=== PATIENT | female | born 1960 | race African-American/Black ===

== ENCOUNTER 2017-01-19 23:44 | Observation (INO) | payer OTHER ==
[~2017-01-19] VITALS: Ht 154.9 cm; Wt 68.0 kg
[~2017-01-19 23:44] MED LIST: COZAAR50 M1 PO; ERYTHROMYCIN; FERROUS SULFAT325 M3 PO; LANTUS100 U/ML SC; METFORMIN HCL1000 M1 PO; NOVOLIN 70100 UNIT/1 SC; NOVOLIN 701000 UNITS SC; PRAVASTATIN SOD40 M2 PO; SYNTHROID0.025 MG PO; VITAMIN D-32000 UNI1 PO
--- NOTE | 2017-01-19 23:52 | NUR ---
TRIAGE: PATIENT TO ER FROM HOME REPORTING CP X FEW DAYS, INC TONIGHT. ALSO REPORTS TONIGHT JUST BOX TOE BUFFER PAIN RADIATION INTO L ARM AND L LEG, TAKING OTC PRILOSEC AND ASA W/O RELIEF. CURRENT PAIN 04/21. EKG OBTAINED AND SHOWN TO MD BROOKS. PATIENT REPORTING +NAUSEA AND INTERMITTENT SOB AT REST. NO ACUTE RESP DISTRESS NOTED, SPEECH CLEAR.
--- NOTE | 2017-01-20 00:01 | NUR ---
BLOOD DRAWN AND SENT TO LAB. [facility],[place]
[2017-01-20 00:36] LABS: ABSOLUTE BASOPHIL COUNT 0 /CUMM (0.0-0.2); ABSOLUTE EOSINOPHIL COUNT 0.1 /CUMM (0.0-0.7); ABSOLUTE GRANULOCYTE CT 1.9 /CUMM (1.4-6.5); ABSOLUTE LYMPH COUNT 3.1 /CUMM (1.2-3.4); ABSOLUTE MONOCYTE COUNT 0.6 /CUMM (0.10-0.60); BASOPHIL % 0.5 % (0.0-2.0); EOSINOPHIL % 1.1 % (0-5); GRANULOCYTE % 33.5 % (42.2-75.2); HEMATOCRIT 36.2 % (37-47); MEAN CORPUSCULAR HGB 27.2 PG (27.0-31.0); MEAN CORPUSCULAR VOLUME 85.1 FL (81.0-99.0); MEAN PLATELET VOLUME 10.4 FL (7.4-10.4); PLATELET COUNT 182 /CUMM (130-400); RBC DISTRIBUTION WIDTH 14.6 % (11.5-14.5); RED BLOOD CELL CT 4.26 /CUMM (4.20-5.40); WHITE BLOOD CELL COUNT 5.7 /CUMM (4.8-10.8)
--- NOTE | 2017-01-20 02:15 | ED CARDIAC/CP/PALPITATIONS ---
History of Present Illness General Chief Complaint: Chest Pain Stated Complaint: CHEST PAIN Source: patient Exam Limitations: no limitations Allergies Coded Allergies: nut - unspecified (Severe, THROAT CLOSURE 01/20/17) Sulfa (Sulfonamide Antibiotics) (Intermediate, DISORIENTED 01/20/17) lisinopril (Intermediate, COUGH 01/20/17) Triage Note: TRIAGE: PATIENT TO ER FROM HOME REPORTING CP X FEW DAYS, INC TONIGHT. ALSO REPORTS TONIGHT JUST NEEDLE BAR MOLDER PAIN RADIATION INTO L ARM AND L LEG, TAKING OTC PRILOSEC AND ASA W/O RELIEF. CURRENT PAIN 04/21. EKG OBTAINED AND SHOWN TO MD BROOKS. PATIENT REPORTING +NAUSEA AND INTERMITTENT SOB AT REST. NO ACUTE RESP DISTRESS NOTED, SPEECH CLEAR. Triage Nurses Notes Reviewed? yes Onset: Abrupt Duration: day(s): (3), waxing and waning Timing: multiple episodes today Location: substernal Activities at Onset: rest Aspirin Today: 7-8 BABY ASPIRIN Associated Symptoms: shortness of breath, PAIN RADIATING TO LEFT ARM HPI: 56 year old female with history of HTN, DM presents to the ER for chief complaint of substernal chest pain for the past 3 days on/off. She has taken 7- 8 baby aspirin today. Lately her blood glucose has been out of control. Today pain is associated with radiation down the left arm. Patient started to have shortness of breath prior to arrival. Patient sees Dr. Nails but has not seen him in 1 year. (CECILIA MARTINEZ,[facility]) Vital Signs & Intake/Output Vital Signs & Intake/Output Vital Signs Date Time Temp Pulse Resp B/P B/P Pulse O2 O2 Flow FiO2 Mean Ox Delivery Rate 01/20 1908 98.5 67 18 138/86 99 01/20 1652 62 18 140/87 99 Room Air 01/20 1619 96.5 74 18 168/90 99 Room Air 01/20 1342 95.5 76 18 138/71 99 Room Air 01/20 1159 97.6 77 18 162/82 01/20 1057 97.6 77 18 162/82 98 01/20 0852 96.5 64 18 139/75 98 01/20 0809 99 Room Air 01/20 0606 97.2 73 18 140/77 97 Room Air 01/19 2352 97.9 89 18 166/81 100 Room Air ED Intake and Output 01/20 0000 01/19 1200 Intake Total Output Total Balance Patient 150 lb Weight Weight Reported by Patient Measurement Method Reconcile Medications Cholecalciferol (Vitamin D3) (Vitamin D-3) 2,000 UNIT CAPSULE 1 CAP PO DAILY bone health (Reported) Ferrous Sulfate 325 MG (65 MG IRON) TABLET 1 TAB PO DAILY anemia (Reported) Insulin Glargine, Recombinan (Lantus) 100 U/ML APRIL 14 UNITS SC QPM DM TAKE 7 UNITS ON THE NIGHT OF 04/11 FROM 04/12 TAKE 14 UNITS OF LANTUS AT BEDTIME ONLY Levothyroxine (Synthroid) 0.025 MG TAB 0.1 MG PO DAILY THROID (Reported) Losartan (Cozaar) 50 MG TAB 1 TAB PO DAILY CARDIAC (Reported) METFORMIN HCL (Metformin) 1,000 MG TAB 1 TAB PO BID DM (Reported) Novolin 70/30 (Novolin 70-30 100 Unit/Ml Vial) 100 UNIT/1 ML VIAL DIABETES ( Reported) SLIDING SCALE. Pravastatin Sodium (Pravastatin) 40 MG TAB 1 TAB PO QPM CHOLESTEROL (Reported ) (DEEPA MARTINEZ,TATY) Past History Travel History Traveled to [place] past 21 day No Medical History Any Pertinent Medical History? see below for history Neurological: NONE EENT: NONE Cardiovascular: hypertension, CHEST PAIN Respiratory: NONE Gastrointestinal: GERD Hepatic: NONE Renal: NONE Musculoskeletal: NONE Psychiatric: NONE Endocrine: diabetes, hyperthyroidism Blood Disorders: NONE Cancer(s): NONE HEAD COOK/Reproductive: NONE History of MRSA: No History of VRE: No History of CDIFF: No Surgical History Surgical History: , thyroidectomy for a for a benign calcified nodule nodule Psychosocial History What is your primary language [place] Tobacco Use: Never used ETOH Use: denies use Illicit Drug Use: denies illicit drug use Family History Hx Contributory? No (CECILIA MARTINEZ,DANIELLE) Review of Systems Review of Systems Constitutional: Denies: chills, fever. EENTM: Reports: no symptoms. Respiratory: Reports: short of breath. Denies: see HPI, sputum production. Cardiovascular: Reports: chest pain. Denies: palpitations. GI: Reports: no symptoms. Genitourinary: Reports: no symptoms. Musculoskeletal: Reports: no symptoms. Skin: Reports: no symptoms. Neurological/Psychological: Reports: no symptoms. Hematologic/Endocrine: Denies: bruising, bleeding, polyuria, polydipsia. Immunologic/Allergic: Denies: splenectomy. All Other Systems: Reviewed and Negative (DANIELLE BROOKS MD) Physical Exam Physical Exam General Appearance: well developed/nourished, alert, awake, anxious, mild distress Head: atraumatic, normal appearance Eyes: Bilateral: normal appearance, PERRL. Ears, Nose, Throat: normal pharynx, normal ENT inspection, hearing grossly normal Neck: normal inspection, supple, full range of motion Respiratory: normal breath sounds, chest non-tender, no respiratory distress Cardiovascular: regular rate/rhythm Peripheral Pulses: 2+ radial (R), 2+ radial (L) Gastrointestinal: normal bowel sounds, soft, non-tender Extremities: normal inspection, normal capillary refill, normal range of motion, no edema Neurologic/Psych: no motor/sensory deficits, awake, alert, oriented x 3 Skin: intact, normal color, warm/dry Core Measures ACS in differential dx? Yes ASA ordered for poss ACS? TAKEN NEEDLE BAR MOLDER Severe Sepsis Present: No Septic Shock Present: No (DANIELLE BROOKS MD) Progress Differential Diagnosis: AMI, aortic dissection, costochondritis, musculoskeletal pain, myocarditis, pancreatitis, pericarditis, pneumonia, pneumothorax, unstable angina Initial ED EKG: NSR, LAD, LPFV Repeat EKG: unchanged Hand-Off Endorsed To: TATY ARENAS MD Endorsed Time: 723 Pending: consult (DR CHAIREZ) (DANIELLE BROOKS MD) Plan of Care: Orders Procedure Date/time Status Nothing by Mouth 01/21 B Active CBC WITHOUT DIFFERENTIAL 01/21 0600 Active BASIC ELECTROLYTES PLUS BUN&CR 01/21 0600 Active Consistent Carbohydrate 2 01/20 L Complete DIPYRIDAMOLE STRESS W/NUC IMAG 01/20 1443 Active Vital Signs 01/20 1307 Active Teach/Educate 01/20 1307 Active Pain Treatment and Response 01/20 1307 Active Nutritional Intake, Monitor 01/20 1307 Active Isolation 01/20 1307 Active Intake & Output 01/20 1307 Active Patient Care Conference 01/20 1307 Active Activity/Ambulation 01/20 1307 Active Add-on Test (ER Only) 01/20 1305 Active Pathway - chart 01/20 1037 Active Patient Data 01/20 1037 Active Patient Data 01/20 0948 Active OXYGEN SETUP (GEN) 01/20 0938 Active Saline Lock 01/[address] in observation 01/20 0938 Active Vital Signs 01/20 0938 Complete Activity/Ambulation 01/20 0938 Complete Code Status 01/20 0938 Active EKG 01/20 0926 Active TROPONIN LEVEL 01/20 0925 Complete TROPONIN LEVEL 01/20 0400 Complete EKG 01/20 0400 Active Telemetry/Bonderite Operator 01/20 0308 Active GLYCOSYLATED HGB 01/20 0000 Complete House Staff 01/20 UNK Active VTE Mechanical Prophylaxis 01/20 UNK Active Telemetry/Bonderite Operator 01/20 UNK Active FingerStick- Glucose 01/20 UNK Active TROPONIN LEVEL 01/19 2359 Complete COMPREHENSIVE METABOLIC PANEL 01/19 2359 Complete CBC WITHOUT DIFFERENTIAL 01/19 2359 Complete EKG 01/19 2345 Active Current Medications Sig/Crow Start time Last Medication Dose Stop Time Status Admin Pravastatin Sodium 40 MG 1700 01/21 1700 AC (Pravachol) Aspirin 81 MG DAILY 01/21 1000 AC (Aspirin) Enoxaparin Sodium 40 MG DAILY 01/21 1000 AC (Lovenox) Multivitamins 1 TAB DAILY 01/21 1000 AC (Theragran Vitamins) Ferrous Sulfate 325 MG QPM 01/20 2200 AC (Feosol) Insulin Detemir 6 UNITS BID 01/20 2200 AC (Levemir) Acetaminophen 650 MG Q6P PRN 01/20 1815 AC (Tylenol) Morphine Sulfate 1 MG Q8P PRN 01/20 1815 AC (Morphine) Oxycodone HCl 5 MG Q6P PRN 01/20 1815 AC (Roxicodone) Nitroglycerin 0.4 MG DAILY 01/20 1545 AC 01/20 (Transderm Nitro 1637 10MG (0.4 MG/Hr) Patch) Insulin Aspart 0 TIDAC/HS 01/20 1200 AC 01/20 (NovoLOG) 1701 Losartan Potassium 50 MG DAILY 01/20 1030 AC 01/20 (Cozaar) 1159 Levothyroxine Sodium 0.1 MG DAILY AC 01/20 1029 AC 01/20 (Synthroid) 1159 Laboratory Tests 01/20/17 0944: Troponin I < 0.01 01/20/17 0412: Troponin I < 0.01 01/20/17 0000: Anion Gap 9, Estimated GFR > 60, BUN/Creatinine Ratio 12.9, Glucose 63 L, Hemoglobin A1c 9.1 H, Calcium 9.6, Total Bilirubin 0.2, AST 19, ALT 30, Alkaline Phosphatase 59, Troponin I < 0.01, Total Protein 7.3, Albumin 4.4, Globulin 2.9, Albumin/Globulin Ratio 1.5, CBC w Diff MAN DIFF ORDERED, RBC 4.26, MCV 85.1, MCH 27.2, RDW 14.6 H, MPV 10.4, Gran % 33.5 L, Lymphocytes % 54.1 H , Monocytes % 10.8 H, Eosinophils % 1.1, Basophils % 0.5, Absolute Granulocytes 1.9, Segmented Neutrophils 30 L, Absolute Lymphocytes 3.1, Lymphocytes 62 H, Monocytes 6, Absolute Monocytes 0.6, Eosinophils 2, Absolute Eosinophils 0.1, Absolute Basophils 0, Platelet Estimate ADEQUATE, PUBS MCHC 32.0 L 6:41 AM D/W DR REYNA. DR CHAIREZ TO EVALUATE PATIENT IN ED. (DANIELLE BROOKS MD) Comments: Discussed with Dr. Chairez, hospitalize for chest pain syndrome. (TATY ARENAS MD) Departure Departure Disposition: STILL A PATIENT Condition: Stable Clinical Impression Primary Impression: Chest pain at rest Referrals: MEHNAZ NAILS MD (PCP/Family) Departure Forms: Customer Survey General Discharge Information (DANIELLE BROOKS MD) Observation Note Spoke With: MEHNAZ NAILS MD Physician Advisor Notified: KIM MARTINEZ,FELICITY [facility] Place Patient In: Non-ED OBS Care Area Rationale for Observation: My rational for observation is as follows continued chest pain with need for further evaluation including serial lab exams cardiac monitoring echocardiogram and nuclear stress testing. (TATY ARENAS MD) Critical Care Note Critical Care Note Critical Care Time: non-applicable (DANIELLE BROOKS MD)
--- NOTE | 2017-01-20 03:20 | NUR ---
PT REPORTS MID STERNAL CP RADIATING TO UNDER L BREAST. DENIES SOB. AWAKE/ALERT WITH EASY WOB. APICAL PULSE WNL.
--- NOTE | 2017-01-20 03:39 | NUR ---
MEDICATED WITH 1SL NITRO. BP BEFORE ADMINISTRATION 126/71, HR 74 BP 5 MINS AFTER 133/63, HR 74. PT REPORTS NO RELIEF.
--- NOTE | 2017-01-20 04:08 | NUR ---
REPEAT EKG AND LABWORK BEING DONE AT THIS TIME. PT RESTING WITH LIGHTS DIMMED, CONT TO REPORT 7/10 PAIN.
--- NOTE | 2017-01-20 04:14 | NUR ---
BLOOD DRAWN AND SENT TO LAB SST
--- NOTE | 2017-01-20 05:06 | NUR ---
sleeping soundly with easy wob. hr 74 on cm.
--- NOTE | 2017-01-20 06:06 | NUR ---
SLEEPING SOUNDLY WITH EASY WOB, WHEN AWAKENED REPORTS 5/10 PAIN. PT AWARE OF POC FOR CARDIOLOGY CONSULT.
--- NOTE | 2017-01-20 07:02 | NUR ---
pt awake/alert with easy wob. reports 4/10 pain. denies sob.
--- NOTE | 2017-01-20 07:42 | NUR ---
ASSUMED CARE OF PT AT THIS TIME WHO IS SLEEPING WITH REGULAR RESPIRATIONS NOTED AND EQUAL CHEST RISE AND FALL REMAINS NORMAL SINUS ON THE MONITOR, RATE 50'S. PER DR BROOKS, PT TO BE EVAL'D BY DR CHAIREZ THIS MORNING.
--- NOTE | 2017-01-20 09:45 | NUR ---
DR CHAIREZ AT THE BEDSIDE
--- NOTE | 2017-01-20 10:54 | History & Physical ---
General Information and HPI MD Statement: I have seen and personally examined GEORGES JURADO and documented this H&P. The patient is a 56 year old F who presented with a patient stated chief complaint of chest discomfort Source of Information: patient Exam Limitations: no limitations History of Present Illness: Patient is a 56-year-old -[place] woman with a past medical history significant for hypertension, hyperlipidemia, uncontrolled diabetes mellitus, hypothyroidism presents to the ED for the evaluation of chest discomfort. Patient mentioned that she has been having chest discomfort for a couple of days now, getting worse, described the chest discomfort dull/pressure-like pain, substernal, intermittent, 7/10 in severity when worse, radiating to left shoulder without any aggravating factors. Patient thought that she might have indigestion and took Prilosec at home without any improvement in her symptoms. The chest discomfort was associated shortness of breath and nausea without any palpitations/sweating. Denied any headaches, reported intermittent dizziness with lightheadedness without any episodes of loss of consciousness. Yesterday her symptoms gotten worse, had constant chest pain at rest ,took 7-8 baby aspirin without any relief and comes to the ED for further evaluation. Patient followed up with Dr. Lubin once for intermittent chest discomfort. Had nuclear stress test done in congenital: 16 that showed no evidence of ischemia. Of the note patient's blood sugar levels are running very high lately between 400-500, she has been compliant with her medications including insulin and metformin, but not compliant with her diet. Patient follows up with Dr. whittington for her diabetes and hypothyroidism, patient is due for a follow-up visit this month Allergies/Medications Allergies: Coded Allergies: nut - unspecified (Severe, THROAT CLOSURE 01/20/17) Sulfa (Sulfonamide Antibiotics) (Intermediate, DISORIENTED 01/20/17) lisinopril (Intermediate, COUGH 01/20/17) Home Med list Cholecalciferol (Vitamin D3) (Vitamin D-3) 2,000 UNIT CAPSULE 1 CAP PO DAILY bone health (Reported) Ferrous Sulfate 325 MG (65 MG IRON) TABLET 1 TAB PO DAILY anemia (Reported) Insulin Glargine, Recombinan (Lantus) 100 U/ML APRIL 14 UNITS SC QPM DM TAKE 7 UNITS ON THE NIGHT OF 04/11 FROM 04/12 TAKE 14 UNITS OF LANTUS AT BEDTIME ONLY Levothyroxine (Synthroid) 0.025 MG TAB 0.1 MG PO DAILY THROID (Reported) Losartan (Cozaar) 50 MG TAB 1 TAB PO DAILY CARDIAC (Reported) METFORMIN HCL (Metformin) 1,000 MG TAB 1 TAB PO BID DM (Reported) Novolin 70/30 (Novolin 70-30 100 Unit/Ml Vial) 100 UNIT/1 ML VIAL DIABETES ( Reported) SLIDING SCALE. Pravastatin Sodium (Pravastatin) 40 MG TAB 1 TAB PO QPM CHOLESTEROL (Reported ) Observation Initial Note - I have personally examined GEORGES JURADO on 01/20/17 at 1806. The disposition of GEORGES JURADO is uncertain at this time and before a determination can be made, she requires a period of observation for the following reasons -chest discomfort(unstable angina/stable angina) -Uncontrolled blood sugar levels Past History Travel History Traveled to [place] past 21 day No Medical History Neurological: NONE EENT: NONE Cardiovascular: hypertension, CHEST PAIN Respiratory: NONE Gastrointestinal: GERD Hepatic: NONE Renal: NONE Musculoskeletal: NONE Psychiatric: NONE Endocrine: diabetes, hyperthyroidism Blood Disorders: NONE Cancer(s): NONE ASSOCIATE ART DIRECTOR/Reproductive: NONE History of MRSA: No History of VRE: No History of CDIFF: No Surgical History Surgical History: , thyroidectomy for a for a benign calcified nodule nodule Past Family/Social History Family History Relations & Conditions if any MOTHER (diabetes [place]). Psychosocial History Primary Language: [place] ETOH Use: denies use Illicit Drug Use: denies illicit drug use Living Will? no Review of Systems Review of Systems Constitutional: Denies: diaphoresis, fever, malaise. EENTM: Denies: blurred vision, double vision, visual changes. Cardiovascular: Reports: chest pain. Denies: orthopena, palpitations. Respiratory: Denies: cough, hemoptysis. GI: Denies: bloating, constipation, diarrhea. Genitourinary: Denies: discharge, dysuria, frequency. Musculoskeletal: Denies: gout. Skin: Denies: cysts, change in skin color, change in hair/nails. Neurological/Psychological: Denies: ataxia, confusion, depressed. Hematologic/Endocrine: Denies: bruising, bleeding, polyuria. Immunologic/Allergic: Denies: splenectomy, HIV/AIDS, lymphadenopathy. Exam & Diagnostic Data Last 24 Hrs of Vital Signs/I&O Vital Signs Date Time Temp Pulse Resp B/P B/P Pulse O2 O2 Flow FiO2 Mean Ox Delivery Rate 01/20 1057 97.6 77 18 162/82 98 01/20 0852 96.5 64 18 139/75 98 01/20 0809 99 Room Air 01/20 0606 97.2 73 18 140/77 97 Room Air 01/19 2352 97.9 89 18 166/81 100 Room Air Intake & Output 01/20 1600 01/20 0800 01/20 0000 Intake Total Output Total Balance Patient 150 lb Weight Weight Reported by Patient Measurement Method Physical Exam General Appearance Alert, Oriented X3 Skin No Rashes, No Breakdown Skin Temp/Moisture Exam: Warm/Dry HEENT Atraumatic, PERRLA Lymphatic Axillary nl Cardiovascular Regular Rate, Normal S1, Normal S2 Abdomen Normal Bowel Sounds, Soft, No Tenderness Neurological Normal Gait, Normal Speech, Strength at 5/5 X4 Ext Extremities No Clubbing, No Cyanosis, No Edema Last 24 Hrs of Labs/Ravi: Laboratory Tests 01/20/17 0944: Troponin I < 0.01 01/20/17 0412: Troponin I < 0.01 01/20/17 0000: Anion Gap 9, Estimated GFR > 60, BUN/Creatinine Ratio 12.9, Glucose 63 L, Calcium 9.6, Total Bilirubin 0.2, AST 19, ALT 30, Alkaline Phosphatase 59, Troponin I < 0.01, Total Protein 7.3, Albumin 4.4, Globulin 2.9, Albumin/ Globulin Ratio 1.5, CBC w Diff MAN DIFF ORDERED, RBC 4.26, MCV 85.1, MCH 27.2, RDW 14.6 H, MPV 10.4, Gran % 33.5 L, Lymphocytes % 54.1 H, Monocytes % 10.8 H, Eosinophils % 1.1, Basophils % 0.5, Absolute Granulocytes 1.9, Segmented Neutrophils 30 L, Absolute Lymphocytes 3.1, Lymphocytes 62 H, Monocytes 6, Absolute Monocytes 0.6, Eosinophils 2, Absolute Eosinophils 0.1, Absolute Basophils 0, Platelet Estimate ADEQUATE, PUBS MCHC 32.0 L Diagnostic Data EKG Results EKG normal sinus rhythm with LEFTanterior vascular block Assessment/Plan Assessment: Patient is a 56-year-old -[place] woman with a past medical history significant for hypertension, hyperlipidemia, uncontrolled diabetes mellitus, hypothyroidism presents to the ED for the evaluation of chest discomfort. Assessment and plan Chest discomfort with nausea and vomiting(possible unstable angina/stable angina Uncontrolled diabetes mellitus Hypothyroidism History of hypertension and hyperlipidemia Plan Chest discomfort with nausea and vomiting(possible unstable angina/stable angina )] * Will keep the patient in observation 24 hours on telemetry floor * 3 sets of troponin are negative without any STT changes. * Patient already received aspirin, continue with statins * Echocardiogram has been ordered. * Lipid panel in the morning * Cardiology consult with Dr. Warren has been obtained as per recommendations patient might get nuclear stress test tomorrow. Uncontrolled diabetes mellitus * Start the patient on low-dose sliding scale with Accu-Cheks * Continue home dose of basal insulin Levemir 8 units twice a day. * Check HbA1c * Consider endocrinology consult with Dr. whittington * Carbohydrate consistent diet Hypothyroidism * Continue home dose of Synthroid History of hypertension and hyperlipidemia * Continue losartan and pravastatin Mild to moderate pain controlled with oxycodone DVT prophylaxis with Lovenox Patient is full code As Ranked By This Provider Problem List: 1. Chest pain 2. Hyperlipidemia 3. Hypothyroidism Core Measures/Miscellaneous Acute Coronary Syndrome ACS Diagnosis: No Cerebrovascular Accident CVA/TIA Diagnosis: No Congestive Heart Failure CHF Diagnosis: No VTE (View Protocol) VTE Risk Factors: Acute medical illness, Age > 40 [facility] prophylaxis d/t: VTE low risk, No contraindications No VTE Pharm Prophylaxis d/t: VTE low risk, No contraindications VTE Diagnosis: No VTE Type: NONE VTE Confirmed by (Test): NONE Sepsis (View Protocol) Severe Sepsis Present: No Septic Shock Septic Shock Present: No Miscellaneous Documentation Attending Case Discussed With: MEHNAZ DUNN MD Primary Care Physician: MEHNAZ DUNN MD Patient sees these Specialists not available at this time Level of Patient Care: Telemetry Resident Review Statement Resident Statement: examined this patient
--- NOTE | 2017-01-20 12:01 | NUR ---
PT REMAINS WITHOUT COMPLAINTS. DENIES ANY SYMPTOMS. NORMAL SINUS ON MONITOR, RATE 80'S MED WITH SYNTHROID AND COZAAR PER MAR. PT STATES SHE TAKES IRON AT NIGHT, BEDTIME, AND REQUESTING TO TAKE SAME TONIGHT. PHARMACY INFORMED OF SAME. LUNCH ORDERED (PASTA WITH SAUCE, SALAD, SOUP - NO MEAT) PER REQUEST.
--- NOTE | 2017-01-20 12:47 | NUR ---
MED WITH INSULIN PER MAR. PT EATING LUNCH CONTINUES TO OFFER NO COMPLAINTS
--- NOTE | 2017-01-20 14:38 | Cons- Cardiology ---
General Information and HPI Consulting Request Date of Consult: 01/20/17 Requested By: Dr. Nails Reason for Consult: Chest pain History of Present Illness: The patient is a pleasant 56-year-old female with history of diabetes mellitus, hypertension, hyperlipidemia, and hypothyroidism who presents complaining of chest pain. She is followed by Dr. Lubin for her cardiology issues, and her primary care physician is Dr. Nails. She complains of heaviness radiating from the epigastric area to her left arm which has been intermittent over the past few days. It has been a 10 out of 10 at times and is currently a 5 out of 10. She complains of shortness of breath associated with this discomfort. No palpitations. No syncope. No orthopnea. No lightheadedness or dizziness. No nausea or vomiting. She has had chest discomfort in the past but she has never before had shortness of breath associated with the chest discomfort. Allergies/Medications Allergies: Coded Allergies: nut - unspecified (Severe, THROAT CLOSURE 01/20/17) Sulfa (Sulfonamide Antibiotics) (Intermediate, DISORIENTED 01/20/17) lisinopril (Intermediate, COUGH 01/20/17) Home Med List: Aspirin (Aspirin*) 81 MG TAB.CHEW 81 MG PO DAILY heart health Cholecalciferol (Vitamin D3) (Vitamin D-3) 2,000 UNIT CAPSULE 1 CAP PO DAILY bone health (Reported) Ferrous Sulfate 325 MG (65 MG IRON) TABLET 1 TAB PO DAILY anemia (Reported) Insulin Detemir (Levemir) 100 UNIT/ML VIAL 6 UNITS SC BID diabetes . Insulin Detemir (Levemir) 100 UNIT/ML VIAL 6 UNITS SC BID diabetes .. Insulin Lispro (Humalog) 100 UNIT/ML VIAL 0 SC TIDAC/HS DIABETES BEFORE MEALS Blood Insulin Sugar Units <80 0 81-150 2 151-200 3 201-250 4 251-300 6 301-350 8 351-400 9 >400 10 Call Doctor AT BEDTIME Blood Insulin Sugar Units <80 0 81-150 0 151-200 0 201-250 0 251-300 2 301-350 3 351-400 4 >400 5 Call Doctor Levothyroxine Sodium 100 MCG TABLET 1 TAB PO DAILY hypothyrodism (Reported) Losartan Potassium (Cozaar) 50 MG TABLET 1 TAB PO DAILY hypertension ( Reported) Metformin HCl 1,000 MG TABLET 1 TAB PO BID diabetes (Reported) Pravastatin Sodium 40 MG TABLET 1 TAB PO DAILY hyperlipidemia (Reported) Current Medications: Current Medications Sig/Crow Start time Last Medication Dose Route Stop Time Status Admin Acetaminophen 650 MG Q6P PRN 01/20 1030 UNVr PO Enoxaparin Sodium 40 MG DAILY 01/21 1000 UNVr SC Ferrous Sulfate 325 MG QPM 01/20 2200 AC PO Insulin Aspart 0 TIDAC/HS 01/20 1200 UNVr 01/20 SC 1247 Insulin Detemir 8 UNITS BID 01/20 1045 UNVr 01/20 SC 1246 Levothyroxine Sodium 0.1 MG DAILY AC 01/20 1029 UNVr 01/20 PO 1159 Losartan Potassium 50 MG DAILY 01/20 1030 UNVr 01/20 PO 1159 Morphine Sulfate 1 MG Q8 PRN 01/20 1030 UNVr IV Multivitamins 1 TAB DAILY 01/21 1000 UNVr PO Nitroglycerin 0 .STK-MED ONE 01/20 0331 DC SL Nitroglycerin 0.4 MG ONCE ONE 01/20 0300 DC 01/20 SL 01/20 0301 0339 Oxycodone HCl 5 MG Q6 PRN 01/20 1030 UNVr PO Pravastatin Sodium 40 MG DAILY 01/21 1000 UNVr PO Review of Systems Review of Systems: No rash. No tremor. No melena. No diaphoresis. All other systems were reviewed, and were noted to be negative. Past History Travel History Traveled to [place] past 21 day No Medical History Neurological: NONE EENT: NONE Cardiovascular: hypertension, CHEST PAIN Respiratory: NONE Gastrointestinal: GERD Hepatic: NONE Renal: NONE Musculoskeletal: NONE Psychiatric: NONE Endocrine: diabetes, hyperthyroidism Blood Disorders: NONE Cancer(s): NONE RESIDENTIAL SUPPORT SPECIALIST/Reproductive: NONE Surgical History Surgical History: , thyroidectomy for a for a benign calcified nodule nodule Family History Relations & Conditions If Any: MOTHER (diabetes [place]). Psychosocial History Primary Language: [place] Smoking Status: Never Smoked ETOH Use: denies use Illicit Drug Use: denies illicit drug use Living Will? no Exam & Diagnostic Data Vital Signs and I&O Vital Signs Date Time Temp Pulse Resp B/P B/P Pulse O2 O2 Flow FiO2 Mean Ox Delivery Rate 01/20 1342 95.5 76 18 138/71 99 Room Air 01/20 1159 97.6 77 18 162/82 01/20 1057 97.6 77 18 162/82 98 01/20 0852 96.5 64 18 139/75 98 01/20 0809 99 Room Air 01/20 0606 97.2 73 18 140/77 97 Room Air 01/19 2352 97.9 89 18 166/81 100 Room Air Intake & Output 01/20 1600 01/20 0801/20 0000 01/19 1600 01/19 0800 01/19 0000 Intake Total Output Total Balance Patient 150 lb 150 lb Weight Weight Reported by Patient Measurement Method Physical Exam: Gen: The patient is in no acute distress HEENT: Normal nose, ears, and oropharynx. Pupils equal bilaterally. Conjunctiva normal. Neck: Supple with no JVD, no masses, and no thyromegaly Lungs: Clear to auscultation with normal respiratory effort Heart: RRR, S1, S2, no murmurs. No peripheral edema, 2+ pulses in the lower extremities bilaterally Abdomen: Soft, nontender, no masses. No hepatomegaly. No splenomegaly Extremities: No clubbing or cyanosis. Normal muscle strength in the upper and lower extremities Skin: Normal skin turgor with no skin ulcers or lesions noted. Neuro: Cranial nerves intact. Sensation intact Psych: Alert and oriented 3 with appropriate affect Labs/Ravi Results: Laboratory Tests 01/20 01/20 01/20 0944 0412 0000 Chemistry Sodium (137 - 145 mmol/L) 144 Potassium (3.5 - 5.1 mmol/L) 3.8 Chloride (98 - 107 mmol/L) 104 Carbon Dioxide (22 - 30 mmol/L) 30 Anion Gap (5 - 16) 9 BUN (7 - 17 mg/dL) 9 Creatinine (0.5 - 1.0 mg/dL) 0.7 Estimated GFR (>60 ml/min) > 60 BUN/Creatinine Ratio (7 - 25 %) 12.9 Glucose (65 - 99 mg/dL) 63 L Hemoglobin A1c (4.2 - 5.8 %) 9.1 H Calcium (8.4 - 10.2 mg/dL) 9.6 Total Bilirubin (0.2 - 1.3 mg/dL) 0.2 AST (14 - 36 U/L) 19 ALT (9 - 52 U/L) 30 Alkaline Phosphatase (<127 U/L) 59 Troponin I (< 0.11 ng/ml) < 0.01 < 0.01 < 0.01 Total Protein (6.3 - 8.2 g/dL) 7.3 Albumin (3.5 - 5.0 g/dL) 4.4 Globulin (1.9 - 4.2 gm/dL) 2.9 Albumin/Globulin Ratio (1.1 - 2.2 %) 1.5 Hematology CBC w Diff MAN DIFF ORDERED WBC (4.8 - 10.8 /CUMM) 5.7 RBC (4.20 - 5.40 /CUMM) 4.26 Hgb (12.0 - 16.0 G/DL) 11.6 L Hct (37 - 47 %) 36.2 L MCV (81.0 - 99.0 FL) 85.1 MCH (27.0 - 31.0 PG) 27.2 RDW (11.5 - 14.5 %) 14.6 H Plt Count (130 - 400 /CUMM) 182 MPV (7.4 - 10.4 FL) 10.4 Gran % (42.2 - 75.2 %) 33.5 L Lymphocytes % (20.5 - 51.1 %) 54.1 H Monocytes % (1.7 - 9.3 %) 10.8 H Eosinophils % (0 - 5 %) 1.1 Basophils % (0.0 - 2.0 %) 0.5 Absolute Granulocytes (1.4 - 6.5 /CUMM) 1.9 Segmented Neutrophils (42.2 - 75.2 %) 30 L Absolute Lymphocytes (1.2 - 3.4 /CUMM) 3.1 Lymphocytes (20.5 - 51.1 %) 62 H Monocytes (1.7 - 9.3 %) 6 Absolute Monocytes (0.10 - 0.60 /CUMM) 0.6 Eosinophils (0 - 5.0 %) 2 Absolute Eosinophils (0.0 - 0.7 /CUMM) 0.1 Absolute Basophils (0.0 - 0.2 /CUMM) 0 Platelet Estimate (ADEQUATE) ADEQUATE PUBS MCHC (33.0 - 37.0 G/DL) 32.0 L Diagnostic Data EKG Results EKG tracing is independently reviewed, and reveals normal sinus rhythm at 73, left axis deviation, left anterior fascicular block, low voltage CXR Results Chest x-ray 04/10/15: Negative Other Results Echocardiogram 04/11/15: 1. Minimal aortic sclerosis is present with no valvular stenosis or insufficiency. 2. Mitral leaflet thickening is present with minimal to mild mitral insufficiency. 3. A physiologic pericardial effusion is present. 4. The left ventricular chamber size is normal with borderline concentric hypertrophy and a normal ejection fraction with no resting wall motion abnormalities. 5. Moderate eccentric tricuspid insufficiency is present with mild pulmonic insufficiency but no significant pulmonary hypertension. Nuclear stress test 08/10/15: negative Assessment/Plan Assessment/Plan Assessment: The patient is a 56-year-old female with history of long-standing diabetes mellitus and hypertension presenting with chest discomfort and shortness of breath. She continues to have 5 out of 10 chest pain. The initial 2 troponin levels are negative. The patient is at high risk for CAD given her long- standing diabetes mellitus. The symptoms may well be secondary to a GI etiology , however the association of shortness of breath is concerning for myocardial ischemia given the patient's high risk status. Recommendations: * I recommend placing on observation and continue to monitor troponin levels. * I recommend performing a Persantine sestamibi stress test if possible prior to discharge. * Aspirin 325 mg by mouth times one followed by 81 mg daily continue statin * Sublingual nitroglycerin when necessary * Nitroglycerin paste as needed Consult Acknowledgment - Thank you for your consult request.
--- NOTE | 2017-01-20 15:07 | NUR ---
RPEORT GIVEN TO DEVIN LÓPEZ
--- NOTE | 2017-01-20 16:21 | NUR ---
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
--- NOTE | 2017-01-20 16:25 | NUR ---
PT GOING TO ROOM 189-1
--- NOTE | 2017-01-20 16:52 | NUR ---
PT REPORTING PAIN HAS IMPROVED FROM 6/10 TO 4/10 AFTER NITRO, BG 235, WILL MEDICATE PER EMAR, BP DECREASED TO 140/87.
--- NOTE | 2017-01-20 17:11 | NUR ---
REPORT TO DAVID BELTRAN
--- NOTE | 2017-01-20 17:37 | PN- Att Addend ---
Attending Addendum Attending Brief Note 56-year-old -Trist[place] female who comes in for chest pain, chest pain is moderately severe in the ER she had serial EKGs and troponins and even though the troponins were negative due to her past medical history of diabetes and hyperlipidemia was evaluated I cardiology and decided his best to keep her in observation for 24 hours and have -stress nuclear test in the morning. Laboratory Tests 01/20 01/20 01/20 0944 0412 0000 Chemistry Sodium (137 - 145 mmol/L) 144 Potassium (3.5 - 5.1 mmol/L) 3.8 Chloride (98 - 107 mmol/L) 104 Carbon Dioxide (22 - 30 mmol/L) 30 Anion Gap (5 - 16) 9 BUN (7 - 17 mg/dL) 9 Creatinine (0.5 - 1.0 mg/dL) 0.7 Estimated GFR (>60 ml/min) > 60 BUN/Creatinine Ratio (7 - 25 %) 12.9 Glucose (65 - 99 mg/dL) 63 L Hemoglobin A1c (4.2 - 5.8 %) 9.1 H Calcium (8.4 - 10.2 mg/dL) 9.6 Total Bilirubin (0.2 - 1.3 mg/dL) 0.2 AST (14 - 36 U/L) 19 ALT (9 - 52 U/L) 30 Alkaline Phosphatase (<127 U/L) 59 Troponin I (< 0.11 ng/ml) < 0.01 < 0.01 < 0.01 Total Protein (6.3 - 8.2 g/dL) 7.3 Albumin (3.5 - 5.0 g/dL) 4.4 Globulin (1.9 - 4.2 gm/dL) 2.9 Albumin/Globulin Ratio (1.1 - 2.2 %) 1.5 Hematology CBC w Diff MAN DIFF ORDERED WBC (4.8 - 10.8 /CUMM) 5.7 RBC (4.20 - 5.40 /CUMM) 4.26 Hgb (12.0 - 16.0 G/DL) 11.6 L Hct (37 - 47 %) 36.2 L MCV (81.0 - 99.0 FL) 85.1 MCH (27.0 - 31.0 PG) 27.2 RDW (11.5 - 14.5 %) 14.6 H Plt Count (130 - 400 /CUMM) 182 MPV (7.4 - 10.4 FL) 10.4 Gran % (42.2 - 75.2 %) 33.5 L Lymphocytes % (20.5 - 51.1 %) 54.1 H Monocytes % (1.7 - 9.3 %) 10.8 H Eosinophils % (0 - 5 %) 1.1 Basophils % (0.0 - 2.0 %) 0.5 Absolute Granulocytes (1.4 - 6.5 /CUMM) 1.9 Segmented Neutrophils (42.2 - 75.2 %) 30 L Absolute Lymphocytes (1.2 - 3.4 /CUMM) 3.1 Lymphocytes (20.5 - 51.1 %) 62 H Monocytes (1.7 - 9.3 %) 6 Absolute Monocytes (0.10 - 0.60 /CUMM) 0.6 Eosinophils (0 - 5.0 %) 2 Absolute Eosinophils (0.0 - 0.7 /CUMM) 0.1 Absolute Basophils (0.0 - 0.2 /CUMM) 0 Platelet Estimate (ADEQUATE) ADEQUATE PUBS MCHC (33.0 - 37.0 G/DL) 32.0 L
[2017-01-20 19:08] VITALS: BP 138/86
--- NOTE | 2017-01-20 20:04 | ECHOCARDIOGRAM REPORT ---
GEORGES JURADO Age: 56 : 1960 Gender: F Exam Date: 01/20/2017 12:10 Exam Location: ER Ht (in): 61 Wt (lb): 150 BSA: 1.73 BP: 162 / 82 Ordering Physician: JESSIKA DAHL MD Referring Physician: JESSIKA DAHL MD Technologist: Trae Rai JULIAN Room Number: 10 Indications: Chest Pain Rhythm: Sinus Technical Quality: Good FINDINGS Left Ventricle Normal size left ventricle. No obvious regional wall motion abnormalities. Normal left ventricular ejection fraction estimated at 65-70%. Right Ventricle Normal right ventricular size and function. Right Atrium Right atrial dilatation. Left Atrium Left atrial dilatation. Mitral Valve Mitral valve thickened. Trace to mild mitral regurgitation. Aortic Valve Trileaflet aortic valve. Diffuse thickening (sclerosis) of the aortic valve cusps without reduced excursion. No aortic stenosis. No aortic regurgitation. Tricuspid Valve Tricuspid valve not well visualized, grossly normal. Mild-to- moderate tricuspid regurgitation. Pulmonic Valve Pulmonic valve not well visualized, grossly normal. Trace to mild pulmonic regurgitation. Pericardium Minimal pericardial effusion (normal variant). Great Vessels Aortic root and proximal ascending aorta not well visualized, grossly normal. CONCLUSIONS 1. Minimal to mild aortic sclerosis is present with no valvular stenosis or insufficiency. 2. MItral leaflet thickening is present with minimal to mild mitral insufficiency and mild left atrial enlargement. 3. A physiologic pericardial effusion is present. 4. The left ventricular chamber size and systolic function are normal with no resting wall motion abnormalities. 5. Mild to moderate tricuspid insufficiency is present with right atrial enlargement and minimal to mild pulmonic insufficiency with an estimated RV systolic pressure of 48 mmHg. 6. The gradient across the LVOT is slightly elevated at 16 mmHg which is likely related to hyperdynamic LV systolic function. THere is no anatomic evidence of LVOT obstruction. Beverly Lubin M.D. (Electronically Signed) Final Date: 20 January 2017 20:03 MEASUREMENTS (Male / Female) Normal Values 2D ECHO LV Diastolic Diameter PLAX 4.3 cm 4.2 - 5.9 / 3.9 - 5.3 cm LV Systolic Diameter PLAX 2.6 cm 2.1 - 4.0 cm LV Fractional Shortening PLAX 39.5 % 25 - 46 % LV Ejection Fraction 2D Teich 70.4 % IVS Diastolic Thickness 1.0 cm LVPW Diastolic Thickness 1.0 cm LV Relative Wall Thickness 0.5 RV Internal Dim ED PLAX 3.5 cm 1.9 - 3.8 cm LVOT Diameter 1.9 cm Aortic Root Diameter 2.7 cm LA Systolic Diameter LX 3.1 cm 3.0 - 4.0 / 2.7 - 3.8 cm LA Volume 45.0 cm 18 - 58 / 22 - 52 cm Ascending Aorta Diameter 3.0 cm DOPPLER AV Peak Velocity 190.0 cm/s AV Peak Gradient 14.4 mmHg AV Mean Velocity 127.0 cm/s AV Mean Gradient 8.0 mmHg AV Velocity Time Integral 43.6 cm LVOT Peak Velocity 100.0 cm/s LVOT Peak Gradient 4.0 mmHg LVOT Mean Velocity 68.0 cm/s LVOT Mean Gradient 2.0 mmHg LVOT Velocity Time Integral 26.2 cm LVOT Stroke Volume 74.3 cm AV Area Cont Eq vti 1.7 cm AV Area Cont Eq pk 1.5 cm MV Peak Velocity 91.1 cm/s MV Peak Gradient 3.3 mmHg MV Mean Velocity 58.1 cm/s MV Mean Gradient 2.0 mmHg Mitral E Point Velocity 98.2 cm/s Mitral A Point Velocity 68.1 cm/s Mitral E to A Ratio 1.4 MV PHT Velocity 99.1 cm/s MV Deceleration Dougherty 469.0 cm/s MV Pressure Half Time 63.4 ms MV Area PHT 3.5 cm MV Deceleration Time 289.0 ms TR Peak Velocity 328.0 cm/s TR Peak Gradient 43.0 mmHg Right Atrial Pressure 5.0 mmHg Pulmonary Artery Systolic Pressu 48.0 mmHg Right Ventricular Systolic Press 48.0 mmHg PV Peak Velocity 86.9 cm/s PV Peak Gradient 3.0 mmHg PV Mean Velocity 63.8 cm/s PV Mean Gradient 2.0 mmHg PV Velocity Time Integral 24.7 cm LV E' Lateral Velocity 12.8 cm/s Mitral E to LV E' Lateral Ratio 7.7 LV E' Septal Velocity 9.6 cm/s Mitral E to LV E' Septal Ratio 10.3
--- NOTE | 2017-01-20 21:55 | Cons- Endocrinology ---
General Information and HPI Consulting Request Date of Consult: 01/20/17 Requested By: Medical team Reason for Consult: management of DM Source of Information: patient Exam Limitations: no limitations History of Present Illness: 56 y/o female, hx of DM and hypothyroidism s/p thyroidectomy, was admitted for chest pain. Her glucose level wasn't controlled with HbA1c of 9.1%. She discontinued Lantus at home due to hypoglycemia. In ER, her glucose level was up and down. In addition, she has been on Levothyroxine 100 mcg daily at home. Allergies/Medications Allergies: Coded Allergies: nut - unspecified (Severe, THROAT CLOSURE 01/20/17) Sulfa (Sulfonamide Antibiotics) (Intermediate, DISORIENTED 01/20/17) lisinopril (Intermediate, COUGH 01/20/17) Home Med List: Cholecalciferol (Vitamin D3) (Vitamin D-3) 2,000 UNIT CAPSULE 1 CAP PO DAILY bone health (Reported) Ferrous Sulfate 325 MG (65 MG IRON) TABLET 1 TAB PO DAILY anemia (Reported) Insulin Glargine, Recombinan (Lantus) 100 U/ML APRIL 14 UNITS SC QPM DM TAKE 7 UNITS ON THE NIGHT OF 04/11 FROM 04/12 TAKE 14 UNITS OF LANTUS AT BEDTIME ONLY Levothyroxine (Synthroid) 0.025 MG TAB 0.1 MG PO DAILY THROID (Reported) Losartan (Cozaar) 50 MG TAB 1 TAB PO DAILY CARDIAC (Reported) METFORMIN HCL (Metformin) 1,000 MG TAB 1 TAB PO BID DM (Reported) Novolin 70/30 (Novolin 70-30 100 Unit/Ml Vial) 100 UNIT/1 ML VIAL DIABETES ( Reported) SLIDING SCALE. Pravastatin Sodium (Pravastatin) 40 MG TAB 1 TAB PO QPM CHOLESTEROL (Reported ) Review of Systems Review of Systems Constitutional: Reports: see HPI. Cardiovascular: Denies: chest pain. Respiratory: Denies: short of breath. GI: Denies: abdominal pain. Hematologic/Endocrine: Denies: polyuria, polydipsia. 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 Psychosocial History Primary Language: Jordanian Smoking Status: Never Smoked ETOH Use: denies use Illicit Drug Use: denies illicit drug use Living Will? no Exam & Diagnostic Data Last 24 Hrs of Vital Signs/I&O Vital Signs Date Time Temp Pulse Resp B/P B/P Pulse O2 O2 Flow FiO2 Mean Ox Delivery Rate 01/20 1908 98.5 67 18 138/86 99 01/20 1652 62 18 140/87 99 Room Air 01/20 1619 96.5 74 18 168/90 99 Room Air 01/20 1342 95.5 76 18 138/71 99 Room Air 01/20 1159 97.6 77 18 162/82 01/20 1057 97.6 77 18 162/82 98 01/20 0852 96.5 64 18 139/75 98 01/20 0809 99 Room Air 01/20 0606 97.2 73 18 140/77 97 Room Air 01/19 2352 97.9 89 18 166/81 100 Room Air Intake & Output 01/20 1600 01/20 0800 01/20 0000 Intake Total Output Total Balance Patient 150 lb 150 lb Weight Weight Reported by Patient Measurement Method Physical Exam General Appearance: no apparent distress Neck: normal inspection Respiratory: no respiratory distress Cardiovascular: regular rate/rhythm Extremities: no edema Labs/Ravi Results: Laboratory Tests 01/20 01/20 01/20 0944 0412 0000 Chemistry Sodium (137 - 145 mmol/L) 144 Potassium (3.5 - 5.1 mmol/L) 3.8 Chloride (98 - 107 mmol/L) 104 Carbon Dioxide (22 - 30 mmol/L) 30 Anion Gap (5 - 16) 9 BUN (7 - 17 mg/dL) 9 Creatinine (0.5 - 1.0 mg/dL) 0.7 Estimated GFR (>60 ml/min) > 60 BUN/Creatinine Ratio (7 - 25 %) 12.9 Glucose (65 - 99 mg/dL) 63 L Hemoglobin A1c (4.2 - 5.8 %) 9.1 H Calcium (8.4 - 10.2 mg/dL) 9.6 Total Bilirubin (0.2 - 1.3 mg/dL) 0.2 AST (14 - 36 U/L) 19 ALT (9 - 52 U/L) 30 Alkaline Phosphatase (<127 U/L) 59 Troponin I (< 0.11 ng/ml) < 0.01 < 0.01 < 0.01 Total Protein (6.3 - 8.2 g/dL) 7.3 Albumin (3.5 - 5.0 g/dL) 4.4 Globulin (1.9 - 4.2 gm/dL) 2.9 Albumin/Globulin Ratio (1.1 - 2.2 %) 1.5 Hematology CBC w Diff MAN DIFF ORDERED WBC (4.8 - 10.8 /CUMM) 5.7 RBC (4.20 - 5.40 /CUMM) 4.26 Hgb (12.0 - 16.0 G/DL) 11.6 L Hct (37 - 47 %) 36.2 L MCV (81.0 - 99.0 FL) 85.1 MCH (27.0 - 31.0 PG) 27.2 RDW (11.5 - 14.5 %) 14.6 H Plt Count (130 - 400 /CUMM) 182 MPV (7.4 - 10.4 FL) 10.4 Gran % (42.2 - 75.2 %) 33.5 L Lymphocytes % (20.5 - 51.1 %) 54.1 H Monocytes % (1.7 - 9.3 %) 10.8 H Eosinophils % (0 - 5 %) 1.1 Basophils % (0.0 - 2.0 %) 0.5 Absolute Granulocytes (1.4 - 6.5 /CUMM) 1.9 Segmented Neutrophils (42.2 - 75.2 %) 30 L Absolute Lymphocytes (1.2 - 3.4 /CUMM) 3.1 Lymphocytes (20.5 - 51.1 %) 62 H Monocytes (1.7 - 9.3 %) 6 Absolute Monocytes (0.10 - 0.60 /CUMM) 0.6 Eosinophils (0 - 5.0 %) 2 Absolute Eosinophils (0.0 - 0.7 /CUMM) 0.1 Absolute Basophils (0.0 - 0.2 /CUMM) 0 Platelet Estimate (ADEQUATE) ADEQUATE PUBS MCHC (33.0 - 37.0 G/DL) 32.0 L Assessment/Plan Assessment/Plan 56 y/o female, hx of DM and hypothyroidism s/p thyroidectomy, was admitted for chest pain. Her glucose level wasn't controlled with HbA1c of 9.1%. She discontinued Lantus at home due to hypoglycemia. Her DM is not controlled. 1. DM: --start Levemir 6 units twice a day; --adjust Novolog coverage before meals-- detail see the inpatient DM order; --addd Novolog coverage at bedtime; --monitor FSGs. will follow 2. Hypothyroidism --continue Levothyroxine 100 mcg daily; -- monitor TFT will follow. Consult Acknowledgment - Thank you for your consult request.
[2017-01-20 23:00] VITALS: BP 132/78
--- NOTE | 2017-01-21 05:58 | PN-Observation ---
Observation Note Observation Note _ I have personally examined GEORGES JURADO. her disposition is uncertain at this time. Before a determination can be made, she requires continued observation for the following reasons []. - chest pain Assessment/Plan Assessment: Ms Jurdao is a 56-year-old female with history of uncontrolled diabetes mellitus, hypertension, hyperlipidemia, and hypothyroidism who was being evaluated for chest pain. At the time of diagnosis, EKG normal sinus rhythm with LAFB. WBC 4.29, Hb 11.6, platelets 173, Na 140, Bicarb 33, BUN 10, Sr Cr 0.6, HbA1c 9.1. Admission diagnosis: 1. Rule out ACS 2. Diabetes Below is the problem list and plan: 1. Chest discomfot- EKG did not show any ST changes. Cardiac enzymes x 3 negative. Plan for a stress test. ASA was given yesterday, and continue ASA daily. Continue statin. If the stress test is negative, and doesnt show any defects, may have her f/u with cardiology. 2. Diabetes- uncontrolled. Dr. whittington advising. Changed the dose of long acting insulin, and currently on levemir. Pt wished to be on levemir instead of glargine. Discussed w/ Dr. Whittington, and informed Dr. Nails in the am. Problem List: 1. Chest pain at rest 2. Hypertension Subjective Follow-up For: chest discomfort Subjective: Pt was comfortable, but slightly anxuous. vitals stable. Review of Systems Constitutional: Reports: see HPI. Objective Last 24 Hrs of Vital Signs/I&O Vital Signs Date Time Temp Pulse Resp B/P B/P Pulse O2 O2 Flow FiO2 Mean Ox Delivery Rate 01/21 0949 87 130/70 01/21 0728 97.7 87 16 130/70 99 Room Air 01/21 0000 Nasal 2.0L Cannula Intake & Output 01/21 1600 / 0800 07/ 0000 Intake Total 480 Output Total 500 Balance -500 480 Intake, Oral 480 Output, Urine 500 Physical Exam General Appearance: No Acute Distress Skin: No Breakdown Skin Temp/Moisture Exam: Warm/Dry Sepsis Skin Exam (color): Normal for Ethnicity HEENT: Atraumatic, PERRLA, EOMI Neck: Supple Lymphatic: Cervical nl Cardiovascular: Normal S1, Normal S2 Lungs: Normal Air Movement Abdomen: Soft, No Tenderness Neurological: Normal Speech, Strength at 5/5 X4 Ext, Normal Tone, Sensation Intact, Cranial Nerves 3-12 NL Extremities: No Clubbing, No Cyanosis, No Edema, Normal Pulses Vascular: Pulses Symmetrical Current Medications: Current Medications Sig/Crow Start time Last Medication Dose Route Stop Time Status Admin Acetaminophen 650 MG Q6P PRN 01/20 1815 DCD 01/20 PO 2145 Aspirin 81 MG DAILY 01/21 1000 DCD PO Aspirin 81 MG DAILY 01/21 1000 DCD 01/21 PO 0840 Dipyridamole 40 MG ONE ONE 01/21 1100 DC Dextrose/Water 32 ML IV 01/21 1101 Enoxaparin Sodium 40 MG DAILY 01/21 1000 DCD SC Enoxaparin Sodium 40 MG DAILY 01/21 1000 DCD 01/21 SC 0840 Ferrous Sulfate 325 MG QPM 01/20 2200 DCD PO Insulin Aspart 0 TIDAC/HS 01/20 1200 DCD 01/21 SC 1758 Insulin Detemir 6 UNITS BID 01/20 2200 DCD 01/20 SC 2145 Levothyroxine Sodium 0.1 MG DAILY AC 01/20 1029 DCD 01/21 PO 0636 Losartan Potassium 50 MG DAILY 01/20 1030 DCD 01/21 PO 0949 Morphine Sulfate 1 MG Q8P PRN 01/20 1815 DCD IV Multivitamins 1 TAB DAILY 01/21 1000 DCD PO Multivitamins 1 TAB DAILY 01/21 1000 DCD 01/21 PO 0840 Nitroglycerin 0.4 MG 1700 01/21 1700 DCD 01/21 TOP 1759 Nitroglycerin 0.4 MG DAILY 01/20 1545 DC 01/20 TOP 1637 Ondansetron HCl 4 MG Q6P PRN 01/20 2245 DCD 01/20 IV 2244 Oxycodone HCl 5 MG Q6P PRN 01/20 1815 DCD 01/21 PO 0559 Pravastatin Sodium 40 MG 1700 01/21 1700 DCD 01/21 PO 1758 Pravastatin Sodium 40 MG DAILY 01/21 1000 DCD PO Last 24 Hrs of Labs/Mics: Laboratory Tests 01/21/17 0615: Anion Gap 7, Estimated GFR > 60, BUN/Creatinine Ratio 16.7, TSH 1.140, Free T4 1.15, CBC w Diff NO MAN DIFF REQ, RBC 4.24, MCV 86.3, MCH 27.3, RDW 14.3, MPV 10.4, Gran % 44.2, Lymphocytes % 43.4, Monocytes % 11.6 H, Eosinophils % 0.4, Basophils % 0.4, Absolute Granulocytes 2.2, Absolute Lymphocytes 2.1, Absolute Monocytes 0.6, Absolute Eosinophils 0, Absolute Basophils 0, PUBS MCHC 31.6 L
[2017-01-21 07:28] VITALS: BP 130/70
[2017-01-21 07:59] LABS: ABSOLUTE BASOPHIL COUNT 0 /CUMM (0.0-0.2); ABSOLUTE EOSINOPHIL COUNT 0 /CUMM (0.0-0.7); ABSOLUTE GRANULOCYTE CT 2.2 /CUMM (1.4-6.5); ABSOLUTE LYMPH COUNT 2.1 /CUMM (1.2-3.4); ABSOLUTE MONOCYTE COUNT 0.6 /CUMM (0.10-0.60); BASOPHIL % 0.4 % (0.0-2.0); EOSINOPHIL % 0.4 % (0-5); GRANULOCYTE % 44.2 % (42.2-75.2); HEMATOCRIT 36.6 % (37-47); MEAN CORPUSCULAR HGB 27.3 PG (27.0-31.0); MEAN CORPUSCULAR HGB CONC 31.6 G/DL (33.0-37.0); MEAN CORPUSCULAR VOLUME 86.3 FL (81.0-99.0); MEAN PLATELET VOLUME 10.4 FL (7.4-10.4); PLATELET COUNT 173 /CUMM (130-400); RBC DISTRIBUTION WIDTH 14.3 % (11.5-14.5); RED BLOOD CELL CT 4.24 /CUMM (4.20-5.40); WHITE BLOOD CELL COUNT 4.9 /CUMM (4.8-10.8)
--- NOTE | 2017-01-21 08:37 | PN- Diabetes ---
Assessment/Plan Assessment: 56 y/o female, hx of DM and hypothyroidism s/p thyroidectomy, was admitted for chest pain. Her glucose level wasn't controlled with HbA1c of 9.1%. She discontinued Lantus at home due to hypoglycemia. Her DM is not controlled. 1. DM: --started Levemir 6 units twice a day; --adjusted Novolog coverage before meals-- detail see the inpatient DM order; --addded Novolog coverage at bedtime; Her FSGs were 235, 161 and 139. She is goping to have stress test done today. 2. Hypothyroidism --on Levothyroxine 100 mcg daily; repeat TFT is pending Plan: continue the current insulin regimen for now; Hold off on insulin while she is NPO; monitor FSGs. will follow. Subjective Subjective: She feels better this morning. Objective Last 24 Hrs of Vital Signs/I&O Vital Signs Date Time Temp Pulse Resp B/P B/P Pulse O2 O2 Flow FiO2 Mean Ox Delivery Rate 01/21 0728 97.7 87 16 130/70 99 Room Air 01/21 0000 Nasal 2.0L Cannula 01/20 2300 98.5 75 16 132/78 99 Nasal 2.0L Cannula 01/20 1908 98.5 67 18 138/86 99 01/20 1652 62 18 140/87 99 Room Air 01/20 1619 96.5 74 18 168/90 99 Room Air 01/20 1342 95.5 76 18 138/71 99 Room Air 01/20 1159 97.6 77 18 162/82 01/20 1057 97.6 77 18 162/82 98 01/20 0852 96.5 64 18 139/75 98 Intake & Output 01/21 1600 01/21 0800 01/21 0000 Intake Total 480 Output Total 500 Balance -500 480 Intake, Oral 480 Output, Urine 500 Findings Pertinent Lab/Ravi Results: Laboratory Tests 01/21 01/20 0615 0944 Chemistry Sodium (137 - 145 mmol/L) 140 Potassium (3.5 - 5.1 mmol/L) 4.3 Chloride (98 - 107 mmol/L) 100 Carbon Dioxide (22 - 30 mmol/L) 33 H Anion Gap (5 - 16) 7 BUN (7 - 17 mg/dL) 10 Creatinine (0.5 - 1.0 mg/dL) 0.6 Estimated GFR (>60 ml/min) > 60 BUN/Creatinine Ratio (7 - 25 %) 16.7 Troponin I (< 0.11 ng/ml) < 0.01 TSH (0.270 - 4.200 uIU/mL) Pending Free T4 (0.64 - 1.79 ng/dL) Pending Hematology CBC w Diff NO MAN DIFF REQ WBC (4.8 - 10.8 /CUMM) 4.9 RBC (4.20 - 5.40 /CUMM) 4.24 Hgb (12.0 - 16.0 G/DL) 11.6 L Hct (37 - 47 %) 36.6 L MCV (81.0 - 99.0 FL) 86.3 MCH (27.0 - 31.0 PG) 27.3 RDW (11.5 - 14.5 %) 14.3 Plt Count (130 - 400 /CUMM) 173 MPV (7.4 - 10.4 FL) 10.4 Gran % (42.2 - 75.2 %) 44.2 Lymphocytes % (20.5 - 51.1 %) 43.4 Monocytes % (1.7 - 9.3 %) 11.6 H Eosinophils % (0 - 5 %) 0.4 Basophils % (0.0 - 2.0 %) 0.4 Absolute Granulocytes (1.4 - 6.5 /CUMM) 2.2 Absolute Lymphocytes (1.2 - 3.4 /CUMM) 2.1 Absolute Monocytes (0.10 - 0.60 /CUMM) 0.6 Absolute Eosinophils (0.0 - 0.7 /CUMM) 0 Absolute Basophils (0.0 - 0.2 /CUMM) 0 PUBS MCHC (33.0 - 37.0 G/DL) 31.6 L
--- NOTE | 2017-01-21 09:05 | PN- Cardiology ---
Subjective Subjective: Pt is seen and examined at bedside. She currently endorses epigastric pressure/ discomfort amd headache. She does deny chest pain,palpitation,sob,diaphoresis, or upper extremity numbness. no acute o/n event reported by nursing staff. Review of Systems: See HPI. Objective Vital Signs and I&Os Vital Signs Date Time Temp Pulse Resp B/P B/P Pulse O2 O2 Flow FiO2 Mean Ox Delivery Rate 01/21 0949 87 130/70 01/21 0728 97.7 87 16 130/70 99 Room Air 01/21 0000 Nasal 2.0L Cannula 01/20 2300 98.5 75 16 132/78 99 Nasal 2.0L Cannula 01/20 1908 98.5 67 18 138/86 99 01/20 1652 62 18 140/87 99 Room Air 01/20 1619 96.5 74 18 168/90 99 Room Air 01/20 1342 95.5 76 18 138/71 99 Room Air 01/20 1159 97.6 77 18 162/82 01/20 1057 97.6 77 18 162/82 98 Intake & Output 01/21 1600 01/21 0800 01/21 0000 01/20 1600 01/20 0800 01/20 0000 Intake Total 480 Output Total 500 Balance -500 480 Intake, Oral 480 Output, Urine 500 Patient 68.039 kg 68.039 kg Weight Weight Reported by Patient Measurement Method Physical Exam: General Appearance Alert, Oriented X3 Skin No Rashes, No Breakdown Skin Temp/Moisture Exam: Warm/Dry HEENT Atraumatic Respiratory: CTA B/L Cardiovascular Regular Rate, Normal S1, Normal S2 Abdomen Normal Bowel Sounds, Soft, No Tenderness Neurologica Normal Speech, Strength at 5/5 X4 Ext Extremities No Clubbing, No Cyanosis, No Edema Current Medications: Current Medications Sig/Crow Start time Last Medication Dose Route Stop Time Status Admin Acetaminophen 650 MG Q6P PRN 01/20 1815 AC 01/20 PO 2145 Acetaminophen 650 MG Q6P PRN 01/20 1030 DCD PO Al Hydroxide/Mg 30 ML ONCE ONE 01/20 2230 DC Hydroxide PO 01/20 2231 Al Hydroxide/Mg 30 ML .STK-MED ONE 01/20 223 DC Hydroxide PO 01/20 2231 Aspirin 81 MG DAILY 01/21 1000 DCD PO Aspirin 81 MG DAILY 01/21 1000 AC 01/21 PO 0840 Aspirin 0 .STK-MED ONE 01/20 1619 DC PO Aspirin 325 MG ONCE ONE 01/20 1545 DCD 01/20 PO 01/20 1546 1620 Aspirin 325 MG ONCE ONE 01/20 1545 DC PO 01/20 1546 Dipyridamole 40 MG ONE ONE 01/21 1100 DC Dextrose/Water 32 ML IV 01/21 1101 Enoxaparin Sodium 40 MG DAILY 01/21 1000 DCD SC Enoxaparin Sodium 40 MG DAILY 01/21 1000 AC 01/21 SC 0840 Ferrous Sulfate 325 MG QPM 01/20 2200 AC PO Insulin Aspart 0 TIDAC/HS 01/20 1200 AC 01/20 SC 1701 Insulin Detemir 6 UNITS BID 01/20 2200 DCD SC Insulin Detemir 6 UNITS BID 01/20 2200 AC 01/20 SC 2145 Insulin Detemir 8 UNITS BID 01/20 1045 DC 01/20 SC 1246 Levothyroxine Sodium 0.1 MG DAILY AC 01/20 1029 AC 01/21 PO 0636 Losartan Potassium 50 MG DAILY 01/20 1030 AC 01/21 PO 0949 Morphine Sulfate 1 MG Q8P PRN 01/20 1815 AC IV Morphine Sulfate 1 MG Q8 PRN 01/20 1030 DCD IV Multivitamins 1 TAB DAILY 01/21 1000 DCD PO Multivitamins 1 TAB DAILY 01/21 1000 AC 01/21 PO 0840 Nitroglycerin 0.4 MG 1700 01/21 1700 AC TOP Nitroglycerin 0.4 MG DAILY 01/20 1545 DC 01/20 TOP 1637 Ondansetron HCl 4 MG Q6P PRN 01/20 2245 AC 01/20 IV 2244 Oxycodone HCl 5 MG Q6P PRN 01/20 1815 AC 01/21 PO 0559 Oxycodone HCl 5 MG Q6 PRN 01/20 1030 DCD PO Pravastatin Sodium 40 MG 1700 01/21 1700 AC PO Pravastatin Sodium 40 MG DAILY 01/21 1000 DCD PO Results Last 48 Hrs of Labs/Mics: Laboratory Tests 01/21/17 0615: Anion Gap 7, Estimated GFR > 60, BUN/Creatinine Ratio 16.7, TSH 1.140, Free T4 1.15, CBC w Diff NO MAN DIFF REQ, RBC 4.24, MCV 86.3, MCH 27.3, RDW 14.3, MPV 10.4, Gran % 44.2, Lymphocytes % 43.4, Monocytes % 11.6 H, Eosinophils % 0.4, Basophils % 0.4, Absolute Granulocytes 2.2, Absolute Lymphocytes 2.1, Absolute Monocytes 0.6, Absolute Eosinophils 0, Absolute Basophils 0, PUBS MCHC 31.6 L 01/20/17 0944: Troponin I < 0.01 01/20/17 0412: Troponin I < 0.01 01/20/17 0000: Anion Gap 9, Estimated GFR > 60, BUN/Creatinine Ratio 12.9, Glucose 63 L, Hemoglobin A1c 9.1 H, Calcium 9.6, Total Bilirubin 0.2, AST 19, ALT 30, Alkaline Phosphatase 59, Troponin I < 0.01, Total Protein 7.3, Albumin 4.4, Globulin 2.9, Albumin/Globulin Ratio 1.5, CBC w Diff MAN DIFF ORDERED, RBC 4.26, MCV 85.1, MCH 27.2, RDW 14.6 H, MPV 10.4, Gran % 33.5 L, Lymphocytes % 54.1 H , Monocytes % 10.8 H, Eosinophils % 1.1, Basophils % 0.5, Absolute Granulocytes 1.9, Segmented Neutrophils 30 L, Absolute Lymphocytes 3.1, Lymphocytes 62 H, Monocytes 6, Absolute Monocytes 0.6, Eosinophils 2, Absolute Eosinophils 0.1, Absolute Basophils 0, Platelet Estimate ADEQUATE, PUBS MCHC 32.0 L Assessment/Plan Assessment/Plan This is pleasent 56-year-old lady with asignificant history of long-standing diabetes mellitus (uncontrolled as evident by the 9.1 AIC) and hypertension presenting with chest discomfort and dyspnea at rest. She however, endrosed a history of heart burn and epigastric pain and intermittently uses OTC antacid. Serial troponion and EKG trended were unremarkable for any suggestion of ACS, stress test done last year was unremarkable. Given her uncontrolled diabetes and constant epigastric pain, most likely etiology of patient chest discomfort is reflux vs gastroperesis. However, due to her longstanding uncontrolled diabetes, HLD/HTN and presentation of chest pain with dyspnea and extremity numbness, she is at increased risk for CAD. Recommendations: * Continue on observation pending results of Persantine sestamibi stress test. Consider discharge if stress test unremarkable. * Continue 81 mg daily * continue statin, please obtain lipid panel and adjust statin accordingly * Sublingual nitroglycerin when necessary Continue telemetry? Yes Problem List: 1. Chest pain
[2017-01-21 09:49] VITALS: BP 130/70
[2017-01-21] MEDS ORDERED: LANTUS SOL100 UNIT/1 SC (14:21)
[2017-01-21] MEDS ORDERED: SYNTHROID25 MCG PO (14:21)
[2017-01-21] MEDS ORDERED: HUMALOG100 UNIT/1 SC ×4 (14:22→16:51)
[2017-01-21] MEDS ORDERED: ASPIRIN81 M4 PO ×2 (14:28→16:53)
--- NOTE | 2017-01-21 14:31 | Patient Discharge Instructions ---
Acute Coronary Syndrome Inclusion Criteria At DC or during hospital stay patient has or had the following: ACS DIAGNOSIS No Discharge Core Measures Meds if any: Prescribed or Continued at Discharge Meds if any: NOT Prescribed or Continued at Discharge Congestive Heart Failure Inclusion Criteria At DC or during hospital stay patient has or had the following: CHF DIAGNOSIS No Discharge Core Measures Meds if any: Prescribed or Continued at Discharge Meds if any: NOT Prescribed or Continued at Discharge Cerebrovascular accident Inclusion Criteria At DC or during hospital stay patient has or had the following: CVA/TIA Diagnosis No Discharge Core Measures Meds if any: Prescribed or Continued at Discharge Meds if any: NOT Prescribed or Continued at Discharge Venous thromboembolism Inclusion Criteria VTE Diagnosis No VTE Type NONE VTE Confirmed by (Test) NONE Discharge Core Measures - Per Current guidelines, there needs to be overlap - treatment for the first 5 days of Warfarin therapy. - If discharged on Warfarin prior to 5 days of - overlap therapy, the patient will need to be - assessed for post discharge needs including - *Post discharge parental anticoagulation - *Warfarin and/or parental anticoagulation education - *Follow up date to check INR post discharge At least 5 days overlap therapy as Inpatient No Meds if any: Prescribed or Continued at Discharge Note: Overlap Therapy is Warfarin and Anticoagulant Meds if any: NOT Prescribed or Continued at Discharge
[2017-01-21] MEDS ORDERED: LEVEMIR100 UNIT/1 SC ×3 (15:59→16:53)
[2017-01-21] MEDS ORDERED: LEVOTHYROXINE100 MC1 PO (16:02)
--- NOTE | 2017-01-21 16:04 | IV DIPYRIDAMOLE NUCLEAR STRESS ---
Clinical Diagnosis: Chest Pain Manager Supply: Maggi Jo IV DIPYRIDAMOLE INFUSED: 40 mg IV AMINOPHYLLINE INFUSED: 125 mg PATIENT WEIGHT: 150 lbs INTERPRETATION: The patient's baseline EKG showed [] at 67 BPM. Baseline B/P 130/80. The patient received 40 mg of dipyridamole infused intravenously over a 4 minute period. TC-99M or Myoview was injected after dipyridamole infusion. The patient complained of nausea/headache. There were no EKG changes seen following pharmacologic infusion. Arrhythmias: None IMPRESSION: The test was supervised by the interpreting Instrument Maker, who was in attendance during the entire test. No EKG evidence of stress induced myocardial ischemia. See separately dictated Nuclear Report.
[2017-01-21] MEDS ORDERED: HUMALOG100 UNIT/2 SC (17:11)
--- NOTE | 2017-01-21 17:20 | NUCLEAR MEDICINE REPORT ---
PERSANTINE STRESS AND RESTING SPECT MYOCARDIAL PERFUSION IMAGING STUDY WITH GATED SPECT IMAGES: CLINICAL INDICATION: Chest pain. PROCEDURE: Regional myocardial perfusion was assessed using a 1 day protocol. Stress images were obtained on 01/21/2017 following the intravenous administration of 20.3 mCi Tc 99m Myoview. Stress consisted of 40 mg Persantine given intravenously. Following the sestamibi injection, 125 mg aminophylline was given intravenously. Rest images were obtained 01/21/2017 following the intravenous administration of 29 mCi Technetium 99m Myoview. Single photon emission tomographic (SPECT) images were obtained. SPECT images were acquired in a 64 x 64 matrix of 64 projections over 180 degrees. These were reconstructed into standard short axis, horizontal and vertical long axis cardiac projections. FINDINGS: The post stress images demonstrate the left ventricular chamber to be normal in size. There is homogeneous distribution of activity in the left ventricular myocardium with no regions of abnormally decreased activity noted. The resting images also demonstrate homogeneous distribution of activity in the left ventricular myocardium, and are not significantly changed from the post stress images. The images were obtained using a gated SPECT technique, which permits visualization of wall motion and calculation of the left ventricular ejection fraction. No left ventricular wall motion abnormalities are noted on either the stress or resting study. The calculated left ventricular ejection fraction is 68% on the stress study. Compared to the previous study dated 08/10/2015, there has not been a significant change in perfusion. The gated images from the previous study are not available for review and the wall motion cannot be compared. Ejection fraction is similar to the previous study when it was 75%. IMPRESSION: Normal Persantine stress and resting myocardial perfusion study with normal left ventricular wall motion and ejection fraction.
--- NOTE | 2017-01-21 18:38 | PN- Att Addend ---
Attending Addendum Attending Brief Note Patient feeling better denies any chest pain shortness of breath, her vital signs are stable no fever but no major changes on physical. Patient waiting to go for a nuclear stress test depending on the results we'll start disposition plans. 24 TOTALS 01/21 0000 01/20 0000 Intake Total 480 Output Total Balance 480 Intake, Oral 480 Patient 150 lb 150 lb Weight Weight Reported by Patient Measurement Method Current Medications Sig/Crow Start time Last Medication Dose Route Stop Time Status Admin Acetaminophen 650 MG Q6P PRN 01/20 1815 AC 01/20 PO 2145 Al Hydroxide/Mg 30 ML ONCE ONE 01/20 2230 DC Hydroxide PO 01/20 2231 Al Hydroxide/Mg 30 ML .STK-MED ONE 01/20 2230 DC Hydroxide PO 01/20 2231 Aspirin 81 MG DAILY 01/21 1000 DCD PO Aspirin 81 MG DAILY 01/21 1000 AC 01/21 PO 0840 Dipyridamole 40 MG ONE ONE 01/21 1100 DC Dextrose/Water 32 ML IV 01/21 1101 Enoxaparin Sodium 40 MG DAILY 01/21 1000 DCD SC Enoxaparin Sodium 40 MG DAILY 01/21 1000 AC 01/21 SC 0840 Ferrous Sulfate 325 MG QPM 01/20 2200 AC PO Insulin Aspart 0 TIDAC/HS 01/20 1200 AC 01/21 SC 1758 Insulin Detemir 6 UNITS BID 01/20 2200 DCD SC Insulin Detemir 6 UNITS BID 01/20 2200 AC 01/20 SC 2145 Levothyroxine Sodium 0.1 MG DAILY AC 01/20 1029 AC 01/21 PO 0636 Losartan Potassium 50 MG DAILY 01/20 1030 AC 01/21 PO 0949 Morphine Sulfate 1 MG Q8P PRN 01/20 1815 AC IV Multivitamins 1 TAB DAILY 01/21 1000 DCD PO Multivitamins 1 TAB DAILY 01/21 1000 AC 01/21 PO 0840 Nitroglycerin 0.4 MG 1700 01/21 1700 AC 01/21 TOP 1759 Nitroglycerin 0.4 MG DAILY 01/20 1545 DC 01/20 TOP 1637 Ondansetron HCl 4 MG Q6P PRN 01/20 2245 AC 01/20 IV 2244 Oxycodone HCl 5 MG Q6P PRN 01/20 1815 AC 01/21 PO 0559 Pravastatin Sodium 40 MG 1700 01/21 1700 AC 01/21 PO 1758 Pravastatin Sodium 40 MG DAILY 01/21 1000 DCD PO Laboratory Tests 01/21/17 0615: Anion Gap 7, Estimated GFR > 60, BUN/Creatinine Ratio 16.7, TSH 1.140, Free T4 1.15, CBC w Diff NO MAN DIFF REQ, RBC 4.24, MCV 86.3, MCH 27.3, RDW 14.3, MPV 10.4, Gran % 44.2, Lymphocytes % 43.4, Monocytes % 11.6 H, Eosinophils % 0.4, Basophils % 0.4, Absolute Granulocytes 2.2, Absolute Lymphocytes 2.1, Absolute Monocytes 0.6, Absolute Eosinophils 0, Absolute Basophils 0, PUBS MCHC 31.6 L 01/20/17 0944: Troponin I < 0.01 01/20/17 0412: Troponin I < 0.01 01/20/17 0000: Anion Gap 9, Estimated GFR > 60, BUN/Creatinine Ratio 12.9, Glucose 63 L, Hemoglobin A1c 9.1 H, Calcium 9.6, Total Bilirubin 0.2, AST 19, ALT 30, Alkaline Phosphatase 59, Troponin I < 0.01, Total Protein 7.3, Albumin 4.4, Globulin 2.9, Albumin/Globulin Ratio 1.5, CBC w Diff MAN DIFF ORDERED, RBC 4.26, MCV 85.1, MCH 27.2, RDW 14.6 H, MPV 10.4, Gran % 33.5 L, Lymphocytes % 54.1 H , Monocytes % 10.8 H, Eosinophils % 1.1, Basophils % 0.5, Absolute Granulocytes 1.9, Segmented Neutrophils 30 L, Absolute Lymphocytes 3.1, Lymphocytes 62 H, Monocytes 6, Absolute Monocytes 0.6, Eosinophils 2, Absolute Eosinophils 0.1, Absolute Basophils 0, Platelet Estimate ADEQUATE, PUBS MCHC 32.0 L
--- NOTE | 2017-01-21 19:50 | NUR ---
DISCHARGE: PT IS A+OX4. DENIES CP. VSS STABLE. NITRO PATCH REMOVED.
== END 2017-01-21 19:53 ==
LOC: ERH 23:44 → 1NO 01-20 09:38 → ENRESERV 01-20 16:23 → ENTRNSPT 01-20 17:26 → EDTRNSPTSTS 01-20 17:42 → EDTRNSPT 01-20 17:42 → CMPTRNSPT 01-20 17:56 → ERH 01-20 18:00 → DELTRNSPT 01-20 18:19 → ENRESERV 01-20 19:36 → CANRESERV 01-20 19:36 → 1NO 01-21 09:40 → CMPBEDREQ 01-21 10:01 → 1NO 01-21 19:53
PROVIDERS: Emergency Medicine; Student in an Organized Health Care Education/Training Program; ADMIT Internal Medicine
DX: R07.89 Other chest pain (principal); I10 Essential (primary) hypertension; E78.5 Hyperlipidemia, unspecified; E11.65 Type 2 diabetes mellitus with hyperglycemia; Z79.4 Long term (current) use of insulin; E03.9 Hypothyroidism, unspecified; K21.9 Gastro-esophageal reflux disease without esophagitis
CPT/HCPCS: 1328; 1530; 1748; 36415; 78452; 82436; 93005; 93010; 93016; 93017; 93306; 96372; 96374; A9502; G0378; J1245; J1650; J3490

== ENCOUNTER → 2017-12-31 | Day surgery (SDC) | payer OTHER ==
[~2017-12-31] VITALS: Ht 154.9 cm; Wt 68.0 kg
[~2017-12-31] MED LIST changes: +ASPIRIN81 M4 PO; +CHERATUSSIN AC118 M1 PO; +DOXYCYCLINE HY100 M4 PO; +HUMALOG100 UNIT/1 SC; +HUMALOG100 UNIT/2 SC; +LANTUS SOL100 UNIT/1 SC; +LEVEMIR100 UNIT/1 SC; +LEVOTHYROXINE100 MC1 PO; +PROAIR HFA8.5 GM INH; +SYNTHROID25 MCG PO; +ZOFRAN ODT4 M1 SL
--- NOTE | 2017-12-31 12:31 | Operative Report ---
Operative/Inv Procedure Report Surgery Date: 12/31/17 Name of Procedure: Release left trigger finger Pre-Operative Diagnosis: Symptomatic trigger finger thumb Post-Operative Diagnosis: Same Estimated Blood Loss: scant Surgeon/Brick Picker: Herminio Bedolla MD Anesthesia: moderate sedation Operative/Procedure Note Note: Patient was counseled in regards to the procedure the alternatives risks and expected outcomes as relates to her request for surgical intervention to treat a symptomatic locking thumb stenosing T no synovitis. We discussed the period including infection bleeding pain recurrent injury to surrounding structures and pain. Once agreed to informed consent was signed she was taken to the operative placed supine on the table intravenous sedation given. Local anesthesia was injected the base of the thumb on the palmar aspect. Transverse incision was made through the dermis. Blunt dissection was carried down to the A1 darshan which was divided under direct vision after cleaning the area bluntly. All with inflammation was clearly identified. Passive range of motion showed no further locking. Wound was irrigated and sutured 4-0 nylon.
== END ==
LOC: STS 01:48
DX: M65.312 Trigger thumb, left thumb (principal); E11.9 Type 2 diabetes mellitus without complications; Z79.4 Long term (current) use of insulin; E05.90 Thyrotoxicosis, unspecified without thyrotoxic crisis or storm; I10 Essential (primary) hypertension
CPT/HCPCS: J0690; J2250; J3490